=== PATIENT | female | born 1975 ===

== ENCOUNTER 2018-01-18 09:39 | Emergency (ER) | payer MEDICAID ==
[2018-01-18 09:51] VITALS: TEMP 98.8
[2018-01-18] MEDS ORDERED: Sodium Chloride 0.9% 1,000 ML IV STA (10:22)
--- NOTE | 2018-01-18 10:22 | ED PDOC ---
Arrival/HPI - General Chief Complaint: ENT Problem Time Seen by Provider: 01/18/18 09:57 Historian: Patient - History of Present Illness Narrative History of Present Illness (Text): 01/18/18 10:19 42 y/o female, pmh including chronic anemia for meonorrhagia which she is on the iron supplement, nkda, c/o sorethroat and ear pain x 1 week with chronic feeling fatigue. Pt. stated that she has nasal congestion with sorethroat and ear pain for the past 1 week, no fever or chills, no bodyache, no night sweat, admits been feeling fatigue for over past 3 months due to chronic anemia which she is following with her own pmd for treatment for her anemia, no dizziness, no abdominal pain, no nausea or vomiting, no black or discoloration stool, no rash, no other medical or psychological complaints. Past Medical History - Provider Review Nursing Documentation Reviewed: Yes - Infectious Disease Hx of Infectious Diseases: None - Reproductive Menopause: No - Psychiatric Hx Substance Use: No - Surgical History Hx Tubal Ligation: Yes Family/Social History - Physician Review Nursing Documentation Reviewed: Yes Family/Social History: Unknown Family HX Smoking Status: Current Some Days Smoker Hx Alcohol Use: No Hx Substance Use: No Allergies/Home Meds Allergies/Adverse Reactions: Allergies No Known Allergies Allergy (Verified 01/18/18 09:50) Review of Systems - Review of Systems Constitutional: Fatigue. absent: Fevers Eyes: absent: Vision Changes ENT: Sore Throat, Other (+ear pain). absent: Hearing Changes Respiratory: absent: SOB, Cough Cardiovascular: absent: Chest Pain Gastrointestinal: absent: Abdominal Pain, Nausea, Vomiting Musculoskeletal: absent: Arthralgias, Back Pain Skin: absent: Rash, Pruritis, Skin Lesions, Laceration Neurological: absent: Headache, Dizziness Psychiatric: absent: Anxiety, Depression, Suicidal Ideation Physical Exam Vital Signs Reviewed: Yes Vital Signs Temp Pulse Resp BP Pulse Ox 01/18/18 11:38 75 16 120/78 100 01/18/18 09:47 98.8 F 72 18 123/83 98 Temperature: Afebrile Blood Pressure: Normal Pulse: Regular Respiratory Rate: Normal Appearance: Positive for: Well-Appearing, Non-Toxic, Comfortable Pain Distress: Mild Mental Status: Positive for: Alert and Oriented X 3 Finger Stick Blood Glucose: 97 - Systems Exam Head: Present: Atraumatic, Normocephalic, Other (+ttp on the maxillary sinus region) Pupils: Present: PERRL Extroacular Muscles: Present: EOMI Conjunctiva: Present: Normal Ears: Present: NORMAL TM, Normal Canal. No: Erythema Mouth: Present: Moist Mucous Membranes Pharnyx: Present: Normal. No: ERYTHEMA, EXUDATE, TONSILS ENLARGED, Peritonsilar Swelling, Uvular Deviation, Muffled/Hoarse Voice, Strider, Soft Palate/Uvular Edema Nose (External): Present: Atraumatic. No: Abrasion, Contusion, Laceration Nose (Internal): Present: Normal Inspection, No Active Bleeding. No: Rhinorrhea , Septal Hematoma, Epistaxis Neck: Present: Normal Range of Motion. No: Meningeal Signs, MIDLINE TENDERNESS , Paraspinal Tenderness Respiratory/Chest: Present: Clear to Auscultation, Good Air Exchange. No: Respiratory Distress, Accessory Muscle Use, Wheezes, Decreased Breath Sounds, Rales, Retracting, Rhonchi, Tachypneic Cardiovascular: Present: Regular Rate and Rhythm, Normal S1, S2. No: Murmurs Abdomen: Present: Normal Bowel Sounds. No: Tenderness, Distention, Peritoneal Signs, Rebound, Guarding Back: Present: Normal Inspection Upper Extremity: Present: Normal Inspection. No: Cyanosis, Edema Lower Extremity: Present: Normal Inspection. No: Edema Neurological: Present: GCS=15, CN II-XII Intact, Speech Normal, Motor Func Grossly Intact, Gait Normal, Memory Normal, Other (normal finger to nose, normal heel to guillen, no focal neurological deficits. ) Skin: Present: Warm, Dry, Normal Color. No: Rashes Psychiatric: Present: Alert, Oriented x 3, Normal Insight, Normal Concentration Medical Decision Making ED Course and Treatment: 01/18/18 10:23 -labs to check her hgb -IVF -Observe and reassess 01/18/18 11:22 -Labs are non-significant except hgb 7.2, symptomatic, offered blood transfusion and admission but she declined, stated that she doesn't want blood transfusion that's not her blood and be admitted, stated that she is on the iron supplement 325mg po bid but out of the prescription for the past 2 months and request refill. -Pt. feels well and relief after the IVF. -pt. refused rectal guaiac examination -AMA AMA ER The patient refuses to stay in the Emergency Room (ER) to continue the care and wishes to leave the emergency department against my medical advice. Patient was told that staying in the ER is necessary and a full explanation of the reasons why was given, and understood by the patient with alert and oriented x4. The risk of leaving were explained in laymans term and including but not limited to worsening of anemia, syncope, organ failure, fall, fracture/dislocation, pain , worsening of condition, permanent disability and from an undiagnosed or untreated condition. The patient accepts these risks, able to repeat back and explain the risks and benefits, and is in my judgment is competent and capable of understanding the clinical situation and explanation of the risk of leaving. Patient was given the opportunity to ask questions and change mind. The patient was instructed regarding the best care for the present symptoms, and to follow up as soon as possible with the primary care doctor including specialist or return to the emergency department at any time for continuing care. -You sign out against medical advised, and advised to be admitted for blood transfusion and further evaluation. You are given augmentin, claritidin d24, tamiflu, flonase, iron supplement, eat more red meat, follow up with your own pmd and obgyn (heavy period) and hematology/oncology (anemia) as soon as possible, return to the ER for continue of the care and admission/blood transfusion. - Lab Interpretations Lab Results: 01/18/18 10:18 01/18/18 10:18 Lab Results 01/18/18 10:18: Beta HCG, Quant < 2.39 01/18/18 10:18: WBC 7.5, RBC 4.14, Hgb 7.2 L, Hct 26.3 L, MCV 63.5 L, MCH 17.4 L , MCHC 27.4 L, RDW 17.8 H, Plt Count 307, MPV 9.0, Gran % 65.4, Lymph % (Auto) 28.9, [place] % (Auto) 3.8, Eos % (Auto) 1.5, Baso % (Auto) 0.4, Gran # 4.88, Lymph # (Auto) 2.2, [place] # (Auto) 0.3, Eos # (Auto) 0.1, Baso # (Auto) 0.03 01/18/18 10:18: Sodium 141, Potassium 4.3, Chloride 105, Carbon Dioxide 24, Anion Gap 17, BUN 11, Creatinine 0.8, Est GFR ( Amer) > 60, Est GFR (Non- Af Amer) > 60, Random Glucose 101, Calcium 9.0, Total Bilirubin 0.5, AST 28, ALT 18, Alkaline Phosphatase 38, Total Protein 7.4, Albumin 4.4, Globulin 3.0, Albumin/Globulin Ratio 1.5 01/18/18 10:16: POC Glucose (mg/dL) 97 - Medication Orders Current Medication Orders: Discontinued Medications Sodium Chloride (Sodium Chloride 0.9%) 1,000 mls @ 999 mls/hr IV .Q1H1M STA Stop: 01/18/18 11:22 Last Admin: 01/18/18 10:26 Dose: 999 mls/hr eMAR Start Stop Document 01/18/18 10:26 SE (Rec: 01/18/18 10:26 SE [id number]) Intravenous Solution Start Date 01/18/18 Start Time 10:26 - PA / INSTRUCTOR BUSINESS EDUCATION / Resident Statement / has reviewed & agrees with the documentation as recorded. Disposition/Present on Arrival - Present on Arrival Any Indicators Present on Arrival: No History of DVT/PE: No History of Uncontrolled Diabetes: No Urinary Catheter: No History of Decub. Ulcer: No History Surgical Site Infection Following: None - Disposition Have Diagnosis and Disposition been Completed?: Yes Diagnosis: Sinusitis, Symptomatic anemia, Flu-like symptoms, Non-compliant patient Disposition: AGAINST MEDICAL ADVICE Disposition Time: 10:25 Patient Plan: Discharge Condition: STABLE Additional Instructions: -You sign out against medical advised, and advised to be admitted for blood transfusion and further evaluation. You are given augmentin, claritidin d24, tamiflu, flonase, iron supplement, eat more red meat, follow up with your own pmd and obgyn (heavy period) and hematology/oncology (anemia) as soon as possible, return to the ER for continue of the care and admission/blood transfusion. Prescriptions: Amoxicillin/Clavulanate [Augmentin 875 MG-125 MG] 1 tab PO BID #20 tab Ferrous Sulfate 325 mg PO BID #60 tablet Fluticasone Nasal [Flonase] 1 spr NS DAILY #1 bot Oseltamivir Phosphate [Tamiflu] 75 mg PO BID #10 capsule Referrals: Patrice Scott MD [Primary Care Provider] - Follow up with primary Jovi Bravo MD [Staff Provider] - Follow up with primary Gigi Guardado DO [Doctor Osteopathy] - Follow up with primary Jerzy Sanchez MD [Staff Provider] - Follow up with primary Forms: WORK NOTE
[2018-01-18 10:37] LABS: BASO # 0.03 K/mm3 (0.0-2.0); BASO % 0.4 % (0.0-3.0); EOS # 0.1 (0.0-0.7); EOS % 1.5 % (1.5-5.0); GRAN # 4.88 (1.4-6.5); GRAN % 65.4 % (50.0-68.0); HEMOGLOBIN 7.2 g/dL (12.0-16.0); LYMPH # 2.2 (1.2-3.4); LYMPH % 28.9 % (22.0-35.0); MEAN CELL VOLUME 63.5 fl (80.0-105.0); MEAN CORPUSCULAR HEMOGLOBIN 17.4 pg (25.0-35.0); MEAN CORPUSCULAR HGB CONC 27.4 g/dl (31.0-37.0); MONO # 0.3 (0.1-0.6); MONO % 3.8 % (1.0-6.0); RBC 4.14 10^6/uL (3.5-6.1); RED CELL DISTRIBUTION WIDTH 17.8 % (11.5-14.5); WHITE BLOOD COUNT 7.5 10^3/ul (4.5-11.0)
[2018-01-18 10:48] LABS: ALB/GLOB RATIO 1.5 (1.1-1.8); ALBUMIN 4.4 g/dL (3.0-4.8); ALT/SGPT 18 U/L (7-56); AST/SGOT 28 U/L (14-36); BLOOD UREA NITROGEN 11 mg/dL (7-21); GFR AFRICAN-AMERICAN > 60; GFR NON-AFRICAN AMERICAN > 60
[2018-01-18 11:38] VITALS: BP 120/78; PULSE 75; RESP 16; O2SAT 100
--- NOTE | 2018-01-19 02:37 | CARD ---
APPROVED REPORT EKG Measurement Heart [id number] <Conclusion> Normal sinus rhythm Right bundle branch block Abnormal ECG
== END 2018-01-18 11:35 | disposition left against medical advice (07) ==
LOC: ED 09:39 → MERGE 09:39 → ED 11:35
DX: D64.9 Anemia, unspecified (principal); J32.9 Chronic sinusitis, unspecified; J11.1 Influenza due to unidentified influenza virus with other respiratory manifestations; Z91.19 Patient's noncompliance with other medical treatment and regimen
CPT/HCPCS: 80053; 82948; 84702; 85025; 93005; 99284; J7040

== ENCOUNTER 2018-04-13 10:15 | Emergency (ER) | payer MEDICAID ==
[2018-04-13 11:07] VITALS: TEMP 98.8
[2018-04-13 12:05] LABS: URINE BILIRUBIN NEGATIVE (NEGATIVE); URINE BLOOD NEGATIVE (NEGATIVE); URINE GLUCOSE (UA) NEGATIVE (NEGATIVE); URINE LEUKOCYTE ESTERASE NEGATIVE Leu/uL (NEGATIVE); URINE PROTEIN NEGATIVE mg/dL (<30 mg/dL); URINE UROBILINOGEN 0.2 E.U./dL (<1 E.U./dL)
[2018-04-13 12:14] LABS: URINE APPEARANCE CLEAR (CLEAR); URINE COLOR YELLOW (YELLOW)
--- NOTE | 2018-04-13 14:07 | ED PDOC ---
Arrival/HPI - General Chief Complaint: Abdominal Pain Time Seen by Provider: 04/13/18 11:36 Historian: Patient - History of Present Illness Narrative History of Present Illness (Text): 04/13/18 14:03 43yo female with Past medical history of fibroids and anemia who present with complaint of pressure like pelvic abdominal and lower back pain. She states she gets this pain with her periods every month. States the pain is worse this time so she came to Emergency department. States her period stopped few days ago. She denies urinary symptoms, hematuria, fever, chills, nausea, vomiting, any other complaint. Past Medical History - Provider Review Nursing Documentation Reviewed: Yes - Infectious Disease Hx of Infectious Diseases: None - Reproductive Menopause: No - Pulmonary Hx Respiratory Disorders: No - Neurological Hx Neurological Disorder: No - Psychiatric Hx Substance Use: No - Surgical History Hx Section: Yes Hx Tubal Ligation: Yes Other/Comment: hx fibroid - Anesthesia Hx Anesthesia: No Hx Anesthesia Reactions: No Family/Social History - Physician Review Nursing Documentation Reviewed: Yes Family/Social History: Unknown Family HX Smoking Status: Current Some Days Smoker Hx Alcohol Use: No Hx Substance Use: No Allergies/Home Meds Allergies/Adverse Reactions: Allergies No Known Allergies Allergy (Unverified 11/13/14 12:05) Review of Systems - Physician Review All systems were reviewed & negative as marked: Yes - Review of Systems Constitutional: Normal Eyes: Normal ENT: Normal Respiratory: Normal Cardiovascular: Normal Gastrointestinal: Abdominal Pain. absent: Constipation, Diarrhea, Nausea, Vomiting, Hematochezia, Hematemesis Genitourinary Female: Normal. absent: Dysuria, Frequency Musculoskeletal: Normal Skin: Normal Neurological: Normal Endocrine: Normal Hemo/Lymphatic: Normal Psychiatric: Normal Physical Exam Vital Signs Reviewed: Yes Vital Signs Temp Pulse Resp BP Pulse Ox 04/13/18 14:59 76 18 98 04/13/18 14:34 62 18 157/76 H 99 04/13/18 10:59 98.8 F 82 16 135/94 H 98 Temperature: Afebrile Blood Pressure: Normal Pulse: Regular Respiratory Rate: Normal Appearance: Positive for: Well-Appearing, Non-Toxic, Comfortable Pain Distress: None Mental Status: Positive for: Alert and Oriented X 3 - Systems Exam Head: Present: Atraumatic, Normocephalic Pupils: Present: PERRL Extroacular Muscles: Present: EOMI Conjunctiva: Present: Normal Mouth: Present: Moist Mucous Membranes Neck: Present: Normal Range of Motion Respiratory/Chest: Present: Clear to Auscultation, Good Air Exchange. No: Respiratory Distress, Accessory Muscle Use Cardiovascular: Present: Regular Rate and Rhythm, Normal S1, S2. No: Murmurs Abdomen: Present: Tenderness (Pelvic tenderness), Other (soft). No: Distention , Peritoneal Signs, Rebound, Guarding, McBurney's Point Tender, Rovsing's Sign Present Back: Present: Normal Inspection. No: CVA Tenderness Upper Extremity: Present: Normal Inspection. No: Cyanosis, Edema Lower Extremity: Present: Normal Inspection. No: Edema Neurological: Present: GCS=15, CN II-XII Intact, Speech Normal Skin: Present: Warm, Dry, Normal Color. No: Rashes Psychiatric: Present: Alert, Oriented x 3, Normal Insight, Normal Concentration Medical Decision Making ED Course and Treatment: 04/13/18 20:25 Pt's pain was controlled in Emergency department with medcation. Urinalysis was negative Pelvic US IMPRESSION: Multiple uterine fibroids as described. . Thickened endometrium which could be due to laboratory secretary phase of the endometrial cycle however repeat ultrasound ( transvaginal ultrasound) during the next menstrual cycle shortly following cessation of menses recommended to assess for spiritism of normal endometrial thickness and exclude any endometrial pathology. Left ovarian cyst. Result was WD the tp. She was DC home with Brianda. She have a IP LITIGATION ASSOCIATE and was strongly to f/u with her IP LITIGATION ASSOCIATE for a repeat transvaginal US. - Lab Interpretations Lab Results: Lab Results 04/13/18 11:49: Urine Color Yellow, Urine Appearance Clear, Urine pH 6.0, Ur Specific [place] 1.020, Urine Protein Negative, Urine Glucose (UA) Negative, Urine Ketones Negative, Urine Blood Negative, Urine Nitrate Negative, Urine Bilirubin Negative, Urine Urobilinogen 0.2, Ur Leukocyte Esterase Negative - RAD Interpretation Radiology Orders: 04/13/18 11:36 PELVIS ULTRASOUND [US] Routine - Medication Orders Current Medication Orders: Discontinued Medications Ketorolac Tromethamine (Toradol) 60 mg IM STAT STA Stop: 04/13/18 12:19 Last Admin: 04/13/18 12:31 Dose: Not Given Non-Admin Reason: Patient Refused Disposition/Present on Arrival - Present on Arrival Any Indicators Present on Arrival: No History of DVT/PE: No History of Uncontrolled Diabetes: No Urinary Catheter: No History of Decub. Ulcer: No History Surgical Site Infection Following: None - Disposition Have Diagnosis and Disposition been Completed?: Yes Diagnosis: Pelvic pain, Fibroid Disposition: HOME/ ROUTINE Disposition Time: 14:45 Patient Plan: Discharge Condition: STABLE Discharge Instructions (ExitCare): Acute Pelvic Pain (DC) Additional Instructions: Follow up with your doctor/IP LITIGATION ASSOCIATE Return to Emergency department for any new symptoms Prescriptions: Naproxen [Naprosyn] 500 mg PO BID #20 tablet Referrals: Patrice Scott MD [Primary Care Provider] - Follow up with primary Forms: [employer] (Turkmen)
--- NOTE | 2018-04-13 14:26 | US ---
HISTORY: Pelvic pain COMPARISON: None available. TECHNIQUE: Transabdominal sonographic evaluation of the pelvis performed. FINDINGS: UTERUS: Uterus is enlarged measuring approximately 17.6 x x 10.6 x 9.5 cm. Uterus is heterogeneous consistent with uterine fibroids. The largest fibroid measures approximately 8.7 x 5.3 x 7.4 cm. A 2nd small fibroid measures 4.8 x 4.2 x 4.7 cm. A 3rd small fibroid measures 3.3 x 2.6 x 2.3 cm ENDOMETRIUM: Endometrium appears somewhat thickened at 1.35 cm all which could be due to the typing secretary phase of the endometrial cycle. Repeat ultrasound during the next menstrual cycle shortly following cessation of menses recommended to assess for scientology of normal endometrial thickness and exclude endometrial pathology. . CERVIX: No cervical abnormality identified. RIGHT OVARY: Measures 1.9 x 2.4 x 1.6 cm. No solid mass. Normal flow. LEFT OVARY: Measures 2.3 x 3.0 x 1.8 cm. No solid mass. Normal flow. There is a left ovarian cyst meant measures 1.2 x 1.6 x 1.4 cm FREE FLUID: No significant free fluid noted. OTHER FINDINGS: None. IMPRESSION: Multiple uterine fibroids as described. . Thickened endometrium which could be due to typing secretary phase of the endometrial cycle however repeat ultrasound (transvaginal ultrasound) during the next menstrual cycle shortly following cessation of menses recommended to assess for scientology of normal endometrial thickness and exclude any endometrial pathology. Left ovarian cyst.
[2018-04-13 14:35] VITALS: BP 157/76; RESP 18
[2018-04-13 15:00] VITALS: PULSE 76; O2SAT 98
== END 2018-04-13 14:59 | disposition home or self-care (01) ==
LOC: ED 10:15
DX: D25.9 Leiomyoma of uterus, unspecified (principal); R10.2 Pelvic and perineal pain; F17.200 Nicotine dependence, unspecified, uncomplicated

== ENCOUNTER 2019-01-24 09:00 | Emergency (ER) | payer MEDICAID ==
[2019-01-24 09:21] VITALS: BP 124/88; PULSE 68; RESP 19; TEMP 98.5; O2SAT 100
--- NOTE | 2019-01-24 10:03 | ED PDOC ---
Arrival/HPI - General Chief Complaint: Flu-like Symptoms Historian: Patient - History of Present Illness Narrative History of Present Illness (Text): 01/24/19 09:49 43 y/o female, no significant pmh, nkda, c/o runny nose/cough/throat pain and bodyache/fatigue x 2 days with no recent traveling. Pt. stated that this feels like her usual influenza, here to get prescriptions, refused testing, no night sweat, no abdominal or pelvic pain, no urinary symptoms, no other medical or psychological complaints. Past Medical History - Provider Review Nursing Documentation Reviewed: Yes - Infectious Disease Hx of Infectious Diseases: None - Cardiac Hx Cardiac Disorders: No - Pulmonary Hx Respiratory Disorders: No - Neurological Hx Neurological Disorder: No - HEENT Hx HEENT Disorder: No - Renal Hx Renal Disorder: No - Endocrine/Metabolic Hx Endocrine Disorders: No - Hematological/Oncological Hx Blood Disorders: No - Integumentary Hx Dermatological Disorder: No - Musculoskeletal/Rheumatological Hx Musculoskeletal Disorders: No - Gastrointestinal Hx Gastrointestinal Disorders: No - Genitourinary/Gynecological Hx Genitourinary Disorders: Yes Other/Comment: FIBROID - Psychiatric Hx Psychophysiologic Disorder: No Hx Substance Use: No - Surgical History Hx Section: Yes Hx Tubal Ligation: Yes Other/Comment: hx fibroid - Anesthesia Hx Anesthesia: No Hx Anesthesia Reactions: No Family/Social History - Physician Review Nursing Documentation Reviewed: Yes Family/Social History: Unknown Family HX Smoking Status: Current Some Days Smoker Hx Alcohol Use: No Hx Substance Use: No Allergies/Home Meds Allergies/Adverse Reactions: Allergies No Known Allergies Allergy (Unverified 01/24/19 09:16) Review of Systems - Review of Systems Constitutional: Fatigue. absent: Fevers Eyes: absent: Vision Changes ENT: Sore Throat, Rhinorrhea. absent: Hearing Changes Respiratory: Cough. absent: SOB, Sputum, Wheezing Cardiovascular: absent: Chest Pain Gastrointestinal: absent: Abdominal Pain, Diarrhea, Nausea, Vomiting Musculoskeletal: Myalgias. absent: Arthralgias, Back Pain Skin: absent: Rash, Pruritis Neurological: absent: Headache, Dizziness Psychiatric: absent: Anxiety, Depression, Suicidal Ideation Physical Exam Vital Signs Reviewed: Yes Vital Signs Temp Pulse Resp BP Pulse Ox 01/24/19 09:17 98.5 F 68 19 124/88 100 Temperature: Afebrile Blood Pressure: Normal Pulse: Regular Respiratory Rate: Normal Appearance: Positive for: Well-Appearing, Non-Toxic, Comfortable Pain Distress: Mild Mental Status: Positive for: Alert and Oriented X 3 - Systems Exam Head: Present: Atraumatic, Normocephalic Pupils: Present: PERRL Extroacular Muscles: Present: EOMI Conjunctiva: Present: Normal Ears: Present: NORMAL TM, Normal Canal. No: Erythema Mouth: Present: Moist Mucous Membranes Pharnyx: No: ERYTHEMA, EXUDATE, TONSILS ENLARGED Nose (External): Present: Atraumatic. No: Abrasion, Contusion, Laceration, Lesions Nose (Internal): Present: Normal Inspection, No Active Bleeding, Rhinorrhea. No: Septal Hematoma, Epistaxis Neck: Present: Normal Range of Motion, Trachea Midline. No: Meningeal Signs, MIDLINE TENDERNESS, Paraspinal Tenderness, Lymphadenopathy Respiratory/Chest: Present: Clear to Auscultation, Good Air Exchange. No: Respiratory Distress, Accessory Muscle Use, Wheezes, Decreased Breath Sounds, Rales, Retracting, Rhonchi, Tachypneic, Tender to Palpation Cardiovascular: Present: Regular Rate and Rhythm, Normal S1, S2. No: Murmurs Abdomen: No: Tenderness, Distention, Peritoneal Signs, Rebound, Guarding Back: Present: Normal Inspection. No: CVA Tenderness, Midline Tenderness, Paraspinal Tenderness Upper Extremity: Present: Normal Inspection, Normal ROM, NORMAL PULSES, Neurovascularly Intact, Capillary Refill < 2s. No: Cyanosis, Edema, Tenderness, Swelling, Deformity Lower Extremity: Present: Normal Inspection, NORMAL PULSES, Normal ROM, Neurovascularly Intact, Capillary Refill < 2 s. No: Edema, Tenderness, Swelling, Deformity Neurological: Present: GCS=15, CN II-XII Intact, Speech Normal, Motor Func Grossly Intact, Normal Cerebellar Funct, Gait Normal, Memory Normal Skin: Present: Warm, Dry, Normal Color. No: Rashes Psychiatric: Present: Alert, Oriented x 3, Normal Insight, Normal Concentration Medical Decision Making ED Course and Treatment: 01/24/19 10:05 -Urine hcg is negative -Pt. refused chest xray/labs and radiology testing. -Discharge home with zithromax, tamiflu, tylenol, bed rest, follow up with your own pmd within 2 days, return to the ER for any new or worsening signs or symptoms. - PA / WATCH CRYSTAL MOLDER / Resident Statement MD/DO has reviewed & agrees with the documentation as recorded. Disposition/Present on Arrival - Present on Arrival Any Indicators Present on Arrival: No History of DVT/PE: No History of Uncontrolled Diabetes: No Urinary Catheter: No History of Decub. Ulcer: No History Surgical Site Infection Following: None - Disposition Have Diagnosis and Disposition been Completed?: Yes Diagnosis: Flu-like symptoms, URI (upper respiratory infection) Disposition: HOME/ ROUTINE Disposition Time: 10:08 Patient Plan: Discharge Condition: IMPROVED Additional Instructions: Discharge home with zithromax, tamiflu, tylenol, bed rest, follow up with your own pmd within 2 days, return to the ER for any new or worsening signs or symptoms. Prescriptions: Acetaminophen [Tylenol] 2 cap PO QID PRN #30 capsule PRN Reason: Other Azithromycin [Zithromax] 250 mg PO DAILY #6 tab Oseltamivir Phosphate [Tamiflu] 75 mg PO BID #10 capsule Referrals: [facility] [place] [Outside] - Follow up with primary Forms: [employer] (Maori), WORK NOTE
== END 2019-01-24 10:40 | disposition home or self-care (01) ==
LOC: ED 09:00
DX: J06.9 Acute upper respiratory infection, unspecified (principal); J11.1 Influenza due to unidentified influenza virus with other respiratory manifestations

== ENCOUNTER 2019-04-28 09:18 | Emergency (ER) | payer MEDICAID ==
[2019-04-28 09:34] VITALS: BP 151/91; PULSE 75; RESP 18; TEMP 98.5; O2SAT 100; BMI 27.4
[2019-04-28] MEDS ORDERED: Sodium Chloride 0.9% 1,000 ML IV STA (09:52)
--- NOTE | 2019-04-28 09:58 | ED PDOC ---
Arrival/HPI - General Chief Complaint: Chest Pain Time Seen by Provider: 04/28/19 09:52 Historian: Patient - History of Present Illness Narrative History of Present Illness (Text): 04/28/19 09:55 44 y/o female, pmh including htn/anemia on iron supplement due to heavy period and fibroids, nkda, c/o fatigue/chest discomfort and dizziness/cloudy sensation x 2 days. Pt. stated that she has been feeling chest discomfort, associated with dizziness and cloudiness sensation x 2 days, admits fatigue, no palpitation or chest pain, no night sweat, no rash, no numbness or tingling, no slurred speech, no change in vision, no night sweat, no black color stool, no other medical or psychological complaints. Past Medical History - Provider Review Nursing Documentation Reviewed: Yes - Infectious Disease Hx of Infectious Diseases: None - Reproductive Menopause: Yes - Cardiac Hx Cardiac Disorders: No - Pulmonary Hx Respiratory Disorders: No - Neurological Hx Neurological Disorder: No - HEENT Hx HEENT Disorder: No - Renal Hx Renal Disorder: No - Endocrine/Metabolic Hx Endocrine Disorders: No - Hematological/Oncological Hx Blood Disorders: No - Integumentary Hx Dermatological Disorder: No - Musculoskeletal/Rheumatological Hx Musculoskeletal Disorders: No - Gastrointestinal Hx Gastrointestinal Disorders: No - Genitourinary/Gynecological Hx Genitourinary Disorders: Yes Other/Comment: FIBROID - Psychiatric Hx Psychophysiologic Disorder: No Hx Substance Use: No - Surgical History Hx Section: Yes Hx Tubal Ligation: Yes Other/Comment: hx fibroid - Anesthesia Hx Anesthesia: No Hx Anesthesia Reactions: No Family/Social History - Physician Review Nursing Documentation Reviewed: Yes Family/Social History: Unknown Family HX Smoking Status: Current Some Days Smoker Hx Alcohol Use: Yes Frequency of alcohol use: Socially Hx Substance Use: No Allergies/Home Meds Allergies/Adverse Reactions: Allergies No Known Allergies Allergy (Verified 04/28/19 09:33) Home Medications: Home Meds Medication Instructions Recorded Confirmed No Known Home Med 04/28/19 04/28/19 Review of Systems - Review of Systems Constitutional: Fatigue. absent: Fevers Eyes: absent: Vision Changes ENT: absent: Hearing Changes Respiratory: absent: SOB, Cough Cardiovascular: absent: Chest Pain Gastrointestinal: absent: Abdominal Pain, Nausea, Vomiting Musculoskeletal: absent: Arthralgias, Back Pain Skin: absent: Rash, Pruritis Neurological: Dizziness. absent: Headache, Focal Weakness, Gait Changes, Speech Changes, Facial Droop, Disequilibrium, Seizure Physical Exam Vital Signs Reviewed: Yes Vital Signs Temp Pulse Resp BP Pulse Ox 04/28/19 09:30 98.5 F 75 18 151/91 H 100 Temperature: Afebrile Blood Pressure: Hypertensive Pulse: Regular Respiratory Rate: Normal Appearance: Positive for: Well-Appearing, Non-Toxic, Comfortable Pain Distress: None Mental Status: Positive for: Alert and Oriented X 3 - Systems Exam Head: Present: Atraumatic, Normocephalic Pupils: Present: PERRL Extroacular Muscles: Present: EOMI Conjunctiva: Present: Normal Ears: Present: NORMAL TM, Normal Canal. No: Erythema Mouth: Present: Moist Mucous Membranes Pharnyx: No: ERYTHEMA, EXUDATE, TONSILS ENLARGED, Peritonsilar Swelling, Uvular Deviation Nose (External): Present: Atraumatic. No: Abrasion, Contusion, Laceration, Lesions Nose (Internal): Present: Normal Inspection, No Active Bleeding. No: Rhinorrhe a, Septal Deviation, Septal Hematoma, Epistaxis Neck: Present: Normal Range of Motion, Trachea Midline. No: Meningeal Signs, MIDLINE TENDERNESS, Paraspinal Tenderness, Lymphadenopathy Respiratory/Chest: Present: Clear to Auscultation, Good Air Exchange. No: Respiratory Distress, Accessory Muscle Use, Wheezes, Decreased Breath Sounds, Rales, Retracting, Rhonchi, Tachypneic, Tender to Palpation Cardiovascular: Present: Regular Rate and Rhythm, Normal S1, S2. No: Murmurs Abdomen: Present: Normal Bowel Sounds. No: Tenderness, Distention, Peritoneal Signs, Rebound, Guarding, McBurney's Point Tender, Rovsing's Sign Present Back: Present: Normal Inspection. No: CVA Tenderness, Midline Tenderness, Paraspinal Tenderness, Pain with Leg Raise, Decubitus Ulcer Upper Extremity: Present: Normal Inspection. No: Cyanosis, Edema Lower Extremity: Present: Normal Inspection. No: Edema Neurological: Present: GCS=15, CN II-XII Intact, Speech Normal, Motor Func Grossly Intact, Normal Cerebellar Funct, Gait Normal, Memory Normal Skin: Present: Warm, Dry, Normal Color. No: Rashes Psychiatric: Present: Alert, Oriented x 3, Normal Insight, Normal Concentration Medical Decision Making ED Course and Treatment: 04/28/19 09:59 ICH vs. Cardiac arrythmia vs. vs. dehydration vs. UTI vs. STEMI vs. anemia -Labs -CT Head -Chest xray -EKG -IVF -Observe and reassess 04/28/19 12:23 -Urine hcg is negative -EKG: NSR @ 63 BPM, chronic RBBB, no acute ST or T wave changes compared with previous ekgs. -CT Head No acute intracranial abnormality. -Chest xray No active pulmonary disease. -Labs are non significant -Trop is negative -Thyroid panel is negative as well -UA show no UTI -Pt. feels well, request to be discharged home. I recommend admission for further evaluation as I don't have clear findings or explaining for her complaints which she would need admission for mannequin refinisher/neurologist clearance but she declined. AMA ER The patient refuses to stay in the Emergency Room (ER) to continue the care and wishes to leave the emergency department against my medical advice. Patient was told that staying in the ER is necessary and a full explanation of the reasons why was given, and understood by the patient with alert and oriented x4. The risk of leaving were explained in laymans term and including but not limited myocardial infarction, cardiac arrythmnia, stroke, pain, worsening of condition, permanent disability and from an undiagnosed or untreated condition. The patient accepts these risks, and is in my judgment is competent and capable of understanding the clinical situation and explanation of the risk of leaving. The patient is able to verbally repeated me back the above explained risks and benefits back to me, and verbally expressed understanding. Patient was given the opportunity to ask questions and change mind. The patient was instructed regarding the best care for the present symptoms, and to follow up as soon as possible with the primary care doctor including specialist or return to the emergency department at any time for continuing care. You sign out against medical advice. Please follow up with your own pmd and mannequin refinisher/neurologist within 2 days, return to the ER for any new or worsening signs or symptoms. - RAD Interpretation Radiology Orders: 04/28/19 09:52 HEAD W/O CONTRAST [CT] Stat CHEST PORTABLE [RAD] Stat -CT Head Date of service: 04/28/2019 PROCEDURE: CT HEAD WITHOUT CONTRAST. HISTORY: dizziness COMPARISON: None available. TECHNIQUE: Axial computed tomography images were obtained through the head/brain without intravenous contrast. Radiation dose: Total exam DLP = 816.18 mGy-cm. This CT exam was performed using one or more of the following dose reduction techniques: Automated exposure control, adjustment of the mA and/or kV according to patient size, and/or use of iterative reconstruction technique. FINDINGS: HEMORRHAGE: No intracranial hemorrhage. BRAIN: Hewitt-white matter differentiation is preserved. There is no mass, mass effect or abnormal extra-axial fluid collection. There is no territorial infarction. The midline sagittal structures are normal. VENTRICLES: The ventricles are normal in size, shape and configuration. CALVARIUM: There is no calvarial fracture or extracranial soft tissue swelling. PARANASAL SINUSES: Predominantly clear. MASTOID AIR CELLS: Predominantly clear. OTHER FINDINGS: None. IMPRESSION: No acute intracranial abnormality. -Chest xray Date of service: 04/28/2019 HISTORY: medical clearance, r/o pneumonia COMPARISON: No prior. FINDINGS: LUNGS: The lungs are well inflated and clear. PLEURA: No pleural effusions or pneumothorax. CARDIOVASCULAR: The heart is normal in size. No aortic atherosclerotic calcifications present. OSSEOUS STRUCTURES: Within normal limits for the patient's age. VISUALIZED UPPER ABDOMEN: Normal. OTHER FINDINGS: None. IMPRESSION: No active pulmonary disease. Malter Operator: Radiologist - Medication Orders Current Medication Orders: Sodium Chloride (Sodium Chloride 0.9%) 1,000 mls @ 999 mls/hr IV .Q1H1M STA Stop: 04/28/19 10:52 Meclizine HCl (Antivert) 25 mg PO STAT STA Stop: 04/28/19 09:53 - PA / [employer]OOK / Resident Statement / has reviewed & agrees with the documentation as recorded. Disposition/Present on Arrival - Present on Arrival Any Indicators Present on Arrival: No History of DVT/PE: No History of Uncontrolled Diabetes: No Urinary Catheter: No History of Decub. Ulcer: No History Surgical Site Infection Following: None - Disposition Have Diagnosis and Disposition been Completed?: Yes Diagnosis: Chest discomfort, Non-compliant patient Disposition: AGAINST MEDICAL ADVICE Disposition Time: 12:23 Condition: STABLE Additional Instructions: You sign out against medical advice. Please follow up with your own pmd and mannequin refinisher/neurologist within 2 days, return to the ER for any new or worsening signs or symptoms. Referrals: Patrice Scott MD [Primary Care Provider] - Follow up with primary Bandar Montes De Oca MD [Staff Provider] - Follow up with primary Pilo Stoner MD [Staff Provider] - Follow up with primary Forms: [employer] (N[place]ian)
[2019-04-28 10:49] LABS: PH,URINE 6.5 (4.7-8.0); URINE APPEARANCE CLEAR (CLEAR); URINE BILIRUBIN NEGATIVE (NEGATIVE); URINE BLOOD NEGATIVE (NEGATIVE); URINE COLOR YELLOW (YELLOW); URINE GLUCOSE (UA) NEGATIVE (NEGATIVE); URINE LEUKOCYTE ESTERASE NEGATIVE Leu/uL (NEGATIVE); URINE PROTEIN NEGATIVE mg/dL (<30 mg/dL); URINE UROBILINOGEN 0.2 E.U./dL (<1 E.U./dL)
[2019-04-28 11:52] LABS: ALB/GLOB RATIO 1.3 (1.1-1.8); ALBUMIN 4.2 g/dL (3.0-4.8); ALT/SGPT 19 U/L (7-56); AST/SGOT 32 U/L (14-36); BLOOD UREA NITROGEN 9 mg/dL (7-21); GFR NON-AFRICAN AMERICAN > 60
--- NOTE | 2019-04-28 11:53 | RAD ---
Date of service: 04/28/2019 HISTORY: medical clearance, r/o pneumonia COMPARISON: No prior. FINDINGS: LUNGS: The lungs are well inflated and clear. PLEURA: No pleural effusions or pneumothorax. CARDIOVASCULAR: The heart is normal in size. No aortic atherosclerotic calcifications present. OSSEOUS STRUCTURES: Within normal limits for the patient's age. VISUALIZED UPPER ABDOMEN: Normal. OTHER FINDINGS: None. IMPRESSION: No active pulmonary disease.
--- NOTE | 2019-04-28 11:53 | CT ---
Date of service: 04/28/2019 PROCEDURE: CT HEAD WITHOUT CONTRAST. HISTORY: dizziness COMPARISON: None available. TECHNIQUE: Axial computed tomography images were obtained through the head/brain without intravenous contrast. Radiation dose: Total exam DLP = 816.18 mGy-cm. This CT exam was performed using one or more of the following dose reduction techniques: Automated exposure control, adjustment of the mA and/or kV according to patient size, and/or use of iterative reconstruction technique. FINDINGS: HEMORRHAGE: No intracranial hemorrhage. BRAIN: Hewitt-white matter differentiation is preserved. There is no mass, mass effect or abnormal extra-axial fluid collection. There is no territorial infarction. The midline sagittal structures are normal. VENTRICLES: The ventricles are normal in size, shape and configuration. CALVARIUM: There is no calvarial fracture or extracranial soft tissue swelling. PARANASAL SINUSES: Predominantly clear. MASTOID AIR CELLS: Predominantly clear. OTHER FINDINGS: None. IMPRESSION: No acute intracranial abnormality.
[2019-04-28 11:56] LABS: BASO # 0.02 K/mm3 (0.0-2.0); BASO % 0.2 % (0.0-3.0); EOS # 0.1 (0.0-0.7); EOS % 0.9 % (1.5-5.0); HEMOGLOBIN 9.5 g/dL (12.0-16.0); LYMPH # 2.4 (1.2-3.4); LYMPH % 29.4 % (22.0-35.0); MEAN CELL VOLUME 69.4 fl (80.0-105.0); MEAN CORPUSCULAR HEMOGLOBIN 19.6 pg (25.0-35.0); MEAN CORPUSCULAR HGB CONC 28.3 g/dl (31.0-37.0); MONO # 0.4 (0.1-0.6); MONO % 5.1 % (1.0-6.0); RBC 4.84 10^6/uL (3.5-6.1); RED CELL DISTRIBUTION WIDTH 19.7 % (11.5-14.5); WHITE BLOOD COUNT 8.2 10^3/uL (4.5-11.0)
[2019-04-28 12:04] LABS: TROPONIN I < 0.01 ng/mL
--- NOTE | 2019-04-28 19:17 | CARD ---
APPROVED REPORT Date of service: 04/28/2019 EKG Measurement Heart [id number] <Conclusion> Poor data quality, interpretation may be adversely affected Normal sinus rhythm Right bundle branch block NDSTT abnormalities Abnormal ECG
== END 2019-04-29 02:53 | disposition left against medical advice (07) ==
LOC: ED 09:18
DX: R07.89 Other chest pain (principal); I10 Essential (primary) hypertension
CPT/HCPCS: 70450; 71045; 80053; 81003; 81025; 83735; 84439; 84443; 84484; 85025; 93005; 96360; 99281; J7030